=== PATIENT | male | born 1995 | race Caucasian/White ===

== ENCOUNTER 2016-05-02 20:57 | Emergency (ER) | payer BC ==
[~2016-05-02] VITALS: Ht 180.3 cm; Wt 80.0 kg
[2016-05-02 21:05] VITALS: TEMP 36.7; Ht 180.3 cm; Wt 80.0 kg
--- NOTE | 2016-05-02 21:29 | EMERGENCY ROOM VISIT NOTE ---
History Report prepared by Scribe: Osmin Gonzalez Under the Supervision of: Dr. Rex Peralta D.O. First contact with patient: 21:03 Chief Complaint: LACERATION/CUT (SUT/DERMABOND) Stated Complaint: HEAD LAC, FALL History of Present Illness The patient is a 21 year old male who presents to the Emergency Room via ALS with complaints of a laceration on the back of head occurring a few minutes prior to arrival. He was playing around with his friends when he got pushed and hit his head on the wall. He currently rates a pain intensity of 2/10. He denies loss of consciousness, or any other complaints. Source of History: patient Onset: a few minutes prior to arrival Position: head Symptom Intensity: 2/10 Quality: other (laceration) Associated Symptoms: No LOC Review of Systems See HPI for pertinent positives & negatives. A total of 10 systems reviewed and were otherwise negative. Past Medical & Surgical Medical Problems: (1) No Known Active Medical Problems Family History Patient reports no known family medical history. Social History Marital Status: single Occupation Status: [employer] student Physical Exam Vital Signs Date Time Temp Pulse Resp B/P Pulse Ox O2 Delivery O2 Flow Rate FiO2 05/02/16 21:11 117 05/02/16 21:05 36.7 120 20 151/94 100 Room Air Physical Exam CONSTITUTIONAL/VITAL SIGNS: Reviewed / noted above. GENERAL: Non-toxic in appearance. INTEGUMENTARY: Warm, dry, and [place]. HEAD: Normocephalic. 10 cm posterior scalp laceration without contamination, with minimal bleeding. EYES: without scleral icterus or trauma. ENT/OROPHARYNX: clear and moist. LYMPHADENOPATHY/NECK: Is supple without lymphadenopathy or meningismus. RESPIRATORY: Lungs clear and equal. CARDIOVASCULAR: Regular rate and rhythm. GI/ABDOMEN: Soft and nontender. No organomegaly or pulsatile mass. No rebound or guarding. Normal bowel sounds. EXTREMITIES: Warm and well perfused. BACK: No CVA tenderness. NEUROLOGICAL: Intact without focal deficits. PSYCHIATRIC: normal affect. MUSCULOSKELETAL: Normally developed with good muscle tone. Medical Decision & Procedures Procedure Location: Scalp Total length: 10 cm Complexity: Simple Verbal consent was obtained after the risks and benefits were explained, including but not limited to bleeding, scarring, infection, pain, and bone/ nerve damage. At this time, the risks of the procedure are less than the risks of NOT performing the procedure. A time out was taken and the correct patient and site identified. The hair cleared from the wound, and a sterile field set. The wound was explored for foreign bodies and none found. Debridement was not performed. The wound edges were approximated using 8 surgical felton in the standard fashion. Hemostasis and excellent approximation was achieved. Antibacterial ointment and a sterile dressing applied. Detailed wound care instructions and signs and symptoms of infection reviewed with the patient. No complications and the patient tolerated the procedure well. ED Course 2102: Previous medical records were reviewed. The patient was evaluated in room B07. A complete history and physical examination was performed. Medical Decision Differential includes close head injury, intracranial bleed, facial trauma, cervical spine trauma, chest and thoracic trauma, abdominal and intra-abdominal trauma, spine neurologic trauma, extremity trauma. Is a 22-year-old male who presents to the ED with a chief complaint of a head laceration. The patient states that he is worsening around with his dash and struck the back of his head off of a wall causing a laceration. He denies loss of consciousness. He denies any other complaints or injuries. He has a 10 cm laceration to the posterior aspect of the scalp that is vertically oriented. There is no contamination. There is minimal bleeding. The laceration was stapled with the aid felton and approximated adequately. There is no hematomas. Patient's exam was otherwise unremarkable. The patient is awake, alert and oriented. He denies any neck or back pain. Denies other injuries. He is felt to be stable for discharge. Stable to be removed in 2 weeks here or at [facility]. Impression Primary Impression: Laceration of scalp Scribe Attestation The scribe's documentation has been prepared under my direction and personally reviewed by me in its entirety. I confirm that the note above accurately reflects all work, treatment, procedures, and medical decision making performed by me. Departure Information Dispostion Home / Self-Care Referrals No Doctor, Assigned (PCP) Patient Instructions ED Laceration Scalp Stitch Or Stap, My [facility] Additional Instructions Have felton removed in 10-14 days here or at [facility]. Return for any concerns.
[2016-05-02 21:57] VITALS: BP 118/67; PULSE 76; O2SAT 98
== END 2016-05-02 21:58 | disposition home or self-care (01) ==
LOC: C.EDB 20:59
DX: S01.01XA Laceration without foreign body of scalp, initial encounter (principal); W51.XXXA Accidental striking against or bumped into by another person, initial encounter; Y93.83 Activity, rough housing and horseplay; Y99.8 Other external cause status